=== PATIENT | female | born 1950 | race Caucasian/White ===

== ENCOUNTER 2018-03-13 14:53 | Emergency (ER) | payer MEDICARE ==
[~2018-03-13] VITALS: Ht 157.5 cm; Wt 59.9 kg
[2018-03-13] MEDS ORDERED: ASPIRIN 81 MG CHEW TAB PO ONE (18:15)
== END 2018-03-13 18:23 | disposition short-term general hospital (02) ==
LOC: ER 14:53
DX: Z03.89 Encounter for observation for other suspected diseases and conditions ruled out (principal)

== ENCOUNTER → 2020-09-22 | Outpatient (CLI) | payer MEDICARE | LOC: MRI 09:31 | PROVIDERS: ATTEND Family Medicine | DX: M54.14 Radiculopathy, thoracic region (principal) | CPT/HCPCS: 72146 ==